=== PATIENT | male | born 2000 | race Caucasian/White ===

== ENCOUNTER 2025-04-28 13:42 | Observation (INO) | payer BC ==
[~2025-04-28 13:42] MED LIST: Iopamidol-370 76% 500 ML MDV (1 ML CHARGE) ONE
[2025-04-28] MEDS ORDERED: hydrALAZINE 20 MG/ML VIAL SLOW IVP PRN (14:13)
[2025-04-28] MEDS ORDERED: Glucagon 1 MG/ML KIT IM PRN (14:13)
[2025-04-28] MEDS ORDERED: Acetaminophen 325 MG TAB PO PRN (14:13)
[2025-04-28] MEDS ORDERED: Dextrose 50% Abboject 50 ML SYRINGE SLOW IVP PRN (14:13)
[2025-04-28] MEDS ORDERED: Ondansetron PF 4 MG/2 ML Vial IVP PRN (14:13)
[2025-04-28 15:09] VITALS: BMI 27.6
[2025-04-28] MEDS ORDERED: FLU (Fluarix Triv) 25-26 (6MOS UP)/PF 45 MCG/0.5 ML Syringe IM ONE (15:30)
[2025-04-28] MEDS: HYDROcodone/Acetaminophen 5/325 mg Tablet PO PRN (15:46)
[2025-04-28 19:39] VITALS: BP 133/79; TEMP 98
[2025-04-30] MEDS ORDERED: TETANUS, DIPHTHERIA TOX,ADULT (TDVAX) 0.5 ML VIAL IM ONE (09:00)
== END 2025-04-28 21:50 | disposition home or self-care (01) ==
LOC: SURG A 13:42
PROVIDERS: ADMIT Colon & Rectal Surgery; ATTEND Colon & Rectal Surgery
DX: S70.02XA Contusion of left hip, initial encounter (principal); M48.07 Spinal stenosis, lumbosacral region; F17.200 Nicotine dependence, unspecified, uncomplicated; V89.2XXA Person injured in unspecified motor-vehicle accident, traffic, initial encounter
CPT/HCPCS: 74177; G0378; Q9967

== ENCOUNTER 2025-06-13 12:48 | Outpatient (CLI) | payer BC | END 2025-06-13 12:49 | disposition home or self-care (01) | LOC: RAD 12:48 | PROVIDERS: ATTEND Surgery | DX: S27.0XXD Traumatic pneumothorax, subsequent encounter (principal) | CPT/HCPCS: 71046 ==